=== PATIENT | female | born 1960 | race Caucasian/White ===

== ENCOUNTER 2016-09-17 20:31 | Emergency (ER) | payer MEDICARE ==
[2016-09-17 20:46] VITALS: BP 139/75
[2016-09-17] MEDS ORDERED: traMADol TAB* 50 MG PO ONE (21:42)
--- NOTE | 2016-09-17 21:43 | RAD ---
INDICATION: Right knee ankle pain 2 days after trip and fall injury COMPARISON: None. TECHNIQUE: 3 views of the right ankle were obtained. FINDINGS: Postsurgical changes include hindfoot plate and screw fixators. On the lateral view of the ankle one of the medullary screws is fractured. Degenerative changes of the ankle joint include sclerotic change of the articulating surface. There is a chronic appearing lucency overlying the fibular malleolus. IMPRESSION: POSTOPERATIVE FINDINGS AND DEGENERATIVE CHANGES DESCRIBED ABOVE. ONE OF THE MULTIPLE MEDULLARY SCREWS IS FRACTURED. THE CHRONICITY OF THIS IS UNKNOWN WITHOUT PRIOR RADIOGRAPHS AVAILABLE FOR COMPARISON. If the patient's symptoms persist, follow-up imaging is recommended.
--- NOTE | 2016-09-17 21:47 | UC ---
Lower Extremity/Ankle HPI - HPI Summary HPI Summary: 56 y./o female with multiple surgeries to ankle with hardware by Dr. Lebron reports 2 days ago fell, hit right ankle on concerte step, + swelling, + bruising, + apin, has not had relief from injury since, + RICE, concerned about fracture. no sensory changes, able to move, weight bear with pain multiple medical comorbidities, has taken ultram in the past without reaction, + reaction to Percocet, unalbe to ttake NSAIDs d/t kidney dz - History of Current Complaint Hx Obtained From: Patient Hx Last Menstrual Period: n/a ?: No Onset/Duration: Sudden Onset, Lasting Days, Still Present Severity Initially: Moderate Severity Currently: Moderate <Poornima Perera - Last Filed: 09/17/16 21:42> <Carmen Styles - Last Filed: 09/18/16 13:10> - History of Current Complaint Chief Complaint: UCLowerExtremity Stated Complaint: RIGHT ANKLE INJURY Time Seen by Provider: 09/17/16 21:19 - Allergies/Home Medications Allergies/Adverse Reactions: Allergies Allergy/AdvReac Type Severity Reaction Status Date / Time Codeine Allergy Intermediate Rash And Verified 09/17/16 20:40 Itching CI Pigment Blue 63 Allergy Hallucinati Verified 09/17/16 20:40 [From Cymbalta] ons Duloxetine [From Cymbalta] Allergy Hallucinati Verified 09/17/16 20:40 ons Latex Allergy Blisters Verified 09/17/16 20:40 Metoclopramide [From Reglan] Allergy Tremors Verified 09/17/16 20:40 Prochlorperazine Allergy Tremors Verified 09/17/16 20:40 [From Compazine] PMH/Surg Hx/FS Hx/Imm Hx Previously Healthy: Yes - R ankle injuries with surgery - Surgical History Surgical History: Yes Surgery Procedure, Year, and Place: COMPLETE HYSTERECTOMY AGE 22 DORSAL COLUMN IMPLANT hernia repair, colon resection, cardiac loop recorder placed 01/21- Removed 08/2014, Left breast biopsy 2004-[place] - Family History Known Family History: Positive: Cardiac Disease, Hypertension, Diabetes - Social History Alcohol Use: None Substance Use Type: None Smoking Status (MU): Never Smoked Tobacco - Immunization History Most Recent Influenza Vaccination: November 2014 <Poornima Perera - Last Filed: 09/17/16 21:42> Review of Systems Skin: Bruising Musculoskeletal: Arthralgia, Decreased ROM, Edema, Myalgia All Other Systems Reviewed And Are Negative: Yes <JaradhernandoPoornima - Last Filed: 09/17/16 21:42> Physical Exam Triage Information Reviewed: Yes Appearance: Well-Appearing, No Pain Distress, Well-Nourished Vital Signs: Initial Vital Signs Temp 98.7 F 09/17/16 20:37 Pulse 90 09/17/16 20:37 Resp 18 09/17/16 20:37 BP 139/75 09/17/16 20:37 Pulse Ox 99 09/17/16 20:37 Musculoskeletal: Positive: ROM Limited @ - able to have AROM in all directions with increased pain with inver/ ever of ankle, strength decreased d/t pain. tenderness to palpation over inferior, anterior med mal, no tenderness lat mal, + tenderness over prox 1, 2 metatarsal. full ROM of all toes, sensation grossly intact. + ecchymosis med mal. + mild edema midfoot, med ankle, Edema @ - R medial malleolus extending to midfoot Neurological: Positive: Alert, Muscle Tone Normal <DilmaPoornima - Last Filed: 09/17/16 21:42> Vital Signs: Initial Vital Signs Temp 98.7 F 09/17/16 20:37 Pulse 90 09/17/16 20:37 Resp 18 09/17/16 20:37 BP 139/75 09/17/16 20:37 Pulse Ox 99 09/17/16 20:37 <Carmen Styles - Last Filed: 09/18/16 13:10> Lower Extremity Course/Dx - Course Course Of Treatment: radiograph + for screw fracture, follow up with DR. Lebron tomorrow, crutches, wbat with firm shoe, non-weightbearing otherwise, ultram for pain - Differential Dx/Diagnosis Differential Diagnosis/HQI/PQRI: Cellulitis, Contusion, Fracture (Closed), Fracture (Open), Infection Provider Diagnoses: hardware fracture, contusion R ankle <Poornima Perera - Last Filed: 09/17/16 21:42> Discharge <Poornima Perera - Last Filed: 09/17/16 21:42> <Carmen Styles - Last Filed: 09/18/16 13:10> - Discharge Plan Condition: Good Disposition: HOME Prescriptions: traMADol TAB* [Ultram*] 50 mg PO Q6HR PRN #20 tab MDD 200mg PRN Reason: Pain Patient Education Materials: Foot Contusion (ED) Referrals: Anne Jose MD [Primary Care Provider] - Additional Instructions: - Follow up with DR. Lebron tomorrow - WEight bearing as tolerated with a firm shoe, non-weightbearing otherwise, crutches. - Ice, elevate, compression - Tylenol for mild pain - Ultram for moderate to severe pain Attestation Statement User Type: Provider - I was available for consult. This patient was seen by the [place]. The patient was not presented to, seen by, or examined by me. -Aroldo <Carmen Styles - Last Filed: 09/18/16 13:10>
== END 2016-09-17 22:04 | disposition home or self-care (01) ==
LOC: UCCORT 20:31
DX: T84.213A Breakdown (mechanical) of internal fixation device of bones of foot and toes, initial encounter (principal); S90.01XA Contusion of right ankle, initial encounter; W19.XXXA Unspecified fall, initial encounter; Y93.9 Activity, unspecified; Y92.9 Unspecified place or not applicable; Z88.8 Allergy status to other drugs, medicaments and biological substances; Z88.5 Allergy status to narcotic agent; Z91.040 Latex allergy status
CPT/HCPCS: 99212; A9270-GY; G0463

== ENCOUNTER 2016-10-06 20:59 | Emergency (ER) | payer MEDICARE ==
--- NOTE | 2016-10-06 21:09 | UC ---
Abdominal Pain Female HPI - HPI Summary HPI Summary: 56 YEAR OLD FEMALE PRESENTS WITH COMPLAINS OF ABDOMINAL PAIN AND DIARRHEA AFTER EATING AN EGG OMELETTE. - History of Current Complaint Stated Complaint: ABDOMINAL PAIN,DIARRHEA (? FOOD POISONING) Time Seen by Provider: 10/06/16 21:09 Hx Obtained From: Patient Hx Last Menstrual Period: n/a Onset/Duration: Sudden Onset Severity Initially: Moderate Severity Currently: Moderate Pain Scale Used: 0-10 Numeric - 7 Location: Diffuse Allergies/Adverse Reactions: Allergies Allergy/AdvReac Type Severity Reaction Status Date / Time Codeine Allergy Intermediate Rash And Verified 10/06/16 21:41 Itching CI Pigment Blue 63 Allergy Hallucinati Verified 10/06/16 21:41 [From Cymbalta] ons Duloxetine [From Cymbalta] Allergy Hallucinati Verified 10/06/16 21:41 ons Latex Allergy Blisters Verified 10/06/16 21:41 Metoclopramide [From Reglan] Allergy Tremors Verified 10/06/16 21:41 Prochlorperazine Allergy Tremors Verified 10/06/16 21:41 [From Compazine] Home Medications: Home Medications Glimepiride [Amaryl] 2 mg PO DAILY 10/06/16 [History Confirmed 10/06/16] Methotrexate TAB* 8 tab PO WEEKLY 10/06/16 [History Confirmed 10/06/16] PMH/Surg Hx/FS Hx/Imm Hx Previously Healthy: Yes - Surgical History Surgical History: Yes Surgery Procedure, Year, and Place: COMPLETE HYSTERECTOMY AGE 22 DORSAL COLUMN IMPLANT hernia repair, colon resection, cardiac loop recorder placed 01/21- Removed 08/2014, Left breast biopsy 2004-[place] - Family History Known Family History: Positive: Cardiac Disease, Hypertension, Diabetes - Social History Alcohol Use: None Substance Use Type: None Smoking Status (MU): Never Smoked Tobacco - Immunization History Most Recent Influenza Vaccination: November 2014 Review of Systems Constitutional: Negative Skin: Negative Eyes: Negative ENT: Negative Respiratory: Negative Cardiovascular: Negative Gastrointestinal: Abdominal Pain Genitourinary: Negative Motor: Negative Neurovascular: Negative Musculoskeletal: Negative Neurological: Negative Psychological: Negative All Other Systems Reviewed And Are Negative: Yes Physical Exam Triage Information Reviewed: Yes Eye Exam: Normal ENT Exam: Normal Dental Exam: Normal Neck exam: Normal Neck: Positive: 1 Respiratory Exam: Normal Cardiovascular Exam: Normal Abdomen Description: Positive: Other: - DIFFUSE ABDOMINAL PAIN Musculoskeletal Exam: Normal Neurological Exam: Normal Psychological Exam: Normal Skin Exam: Normal Abd Pain Female Course/Dx - Differential Dx/Diagnosis Provider Diagnoses: ABDOMINAL PAIN DIFFUSE. FOOD POISONING Discharge - Discharge Plan Condition: Stable Disposition: HOME Prescriptions: Dicyclomine CAP* [Bentyl CAP*] 10 mg PO ACHS PRN #28 cap PRN Reason: Spasms Loperamide HCl [Imodium A-D] 2 mg PO TID PRN #100 tab PRN Reason: Diarrhea Patient Education Materials: Food Poisoning (ED), Abdominal Pain (ED) Referrals: Anne Jose MD [Medical Doctor] - If Needed
[2016-10-06] MEDS ORDERED: Dicyclomine CAP* 10 MG PO ONE (21:17)
[2016-10-06 21:40] VITALS: BP 134/60
== END 2016-10-06 22:07 | disposition home or self-care (01) ==
LOC: UCCORT 20:59
DX: R10.84 Generalized abdominal pain (principal); T62.91XA Toxic effect of unspecified noxious substance eaten as food, accidental (unintentional), initial encounter; Y92.9 Unspecified place or not applicable; Z88.5 Allergy status to narcotic agent; Z88.8 Allergy status to other drugs, medicaments and biological substances; Z91.040 Latex allergy status; Z90.710 Acquired absence of both cervix and uterus
CPT/HCPCS: 82272; 87045; 87046; 87077; 87338; 87493; 87899; 99212; A9270-GY; G0463

== ENCOUNTER 2016-11-18 07:59 | Day surgery (SDC) | payer MEDICARE ==
[~2016-11-18 07:59] MED LIST: Buffered Lidocaine 0.9% SYRIN* 5 ML/SYR SYRINGE INTRADERM ONE; Famotidine IV* 10 MG/ML 2 ML (20 mg) IV ONE; Sodium Citrate/Citric Acid* 15 ML UDC PO ONE
[2016-11-18] MEDS ORDERED: ceFAZolin 2 GM PREMIX (*) 50 ML IVPB ONE (08:02)
[2016-11-18] MEDS ORDERED: Sodium Citrate/Citric Acid* 15 ML UDC ONE (08:02)
[2016-11-18] MEDS ORDERED: Famotidine IV* 10 MG/ML 2 ML (20 mg) ONE (08:02)
[2016-11-18] MEDS ORDERED: Buffered Lidocaine 0.9% SYRIN* 5 ML/SYR SYRINGE ONE (08:02)
[2016-11-18] MEDS ORDERED: Bupivacaine 0.5% SDV PF* 30 ML VIAL ONE (09:32)
[2016-11-18] MEDS ORDERED: fentaNYL* 50 MCG/ML 2 ML VIAL (100 MCG VIAL) ONE ×4 (09:59→11:35)
[2016-11-18] MEDS ORDERED: Lidocaine 2% PF * 5 ML VIAL ONE (10:03)
[2016-11-18] MEDS ORDERED: Propofol* 10 MG/ML 20 ML BTL IV PUSH ONE (10:03)
[2016-11-18] MEDS ORDERED: Ondansetron INJ* 2 MG/ML VIAL IV PRN (10:25)
[2016-11-18] MEDS ORDERED: DiMENhydriNATE IV* 50 MG/ML VIAL IV PUSH PRN (10:25)
[2016-11-18] MEDS ORDERED: oxyCODONE TAB* 5 MG TAB ONE ×2 (10:58→11:19)
[2016-11-18] MEDS: fentaNYL* 50 MCG/ML 2 ML VIAL (100 MCG VIAL) IV PRN ×5 (11:01→11:41)
[2016-11-18] MEDS: oxyCODONE TAB* 5 MG TAB PO PRN ×2 (11:02→11:21)
[2016-11-18 12:46] VITALS: BP 113/57
[2016-11-18] MEDS ORDERED: Ondansetron INJ* 2 MG/ML VIAL ONE (12:54)
--- NOTE | 2016-11-19 01:27 | OP ---
DATE OF SURGERY: 11/18/16 - [facility] DATE OF : 58 SURGEON: Yair Lebron MD BOX PACKER: Kristina Delacruz PA-C ANESTHESIOLOGIST: Isaiah Bertrand MD ANESTHESIA: General PRE-OP DIAGNOSIS: Painful retained hardware, previous triple arthrodesis. POST-OP DIAGNOSIS: Painful retained hardware, previous triple arthrodesis. OPERATIVE PROCEDURE: Removal of hardware, right medial and lateral hind foot. DESCRIPTION OF PROCEDURE: The patient was taken to the operating room where we opened up longitudinally over the dorsal medial hind foot. The anterior tibialis tendon was reflected medially and laterally to allow full visualization of the plate. The 8.0 diameter screw and the 2 medial navicular screws, one of which was broken and known to be broken previously. All this hardware was removed without difficulty except the broken position of the shaft of the screw which was left behind. Laterally, we made a 4 cm incision of the cuboid where the lateral cuboid plate was identified, this was removed also with a small fragment screw snaker tractor driver. We then irrigated the medial and lateral wounds closing with 2-0 Vicryl and bridget for the skin and a compression dressing applied. [id number]/[facility] #: [id number] MTDD
== END 2016-11-18 13:09 | disposition home or self-care (01) ==
LOC: OR 07:59
PROVIDERS: ATTEND Orthopaedic Surgery
DX: T84.84XA Pain due to internal orthopedic prosthetic devices, implants and grafts, initial encounter (principal); T84.116A Breakdown (mechanical) of internal fixation device of bone of right lower leg, initial encounter; Y79.2 Prosthetic and other implants, materials and accessory orthopedic devices associated with adverse incidents; J45.909 Unspecified asthma, uncomplicated; K21.9 Gastro-esophageal reflux disease without esophagitis; E78.00 Pure hypercholesterolemia, unspecified; E11.9 Type 2 diabetes mellitus without complications; I10 Essential (primary) hypertension; M05.79 Rheumatoid arthritis with rheumatoid factor of multiple sites without organ or systems involvement; Z86.73 Personal history of transient ischemic attack (TIA), and cerebral infarction without residual deficits; Z88.8 Allergy status to other drugs, medicaments and biological substances; Z88.5 Allergy status to narcotic agent
CPT/HCPCS: 88300; A9270-GY; J0690; J2405; J2704; J3010

== ENCOUNTER 2016-12-01 18:12 | Emergency (ER) | payer MEDICARE ==
--- NOTE | 2016-12-01 20:01 | UC ---
Skin Complaint HPI - HPI Summary HPI Summary: 56 YEAR OLD WHO HAS FOOT PAIN AND REDNESS. pt states she had surgery on to have hardware removed from her R foot that has been in her R foot for 20+ yrs. She comes to clinic today d/t concern of an infection in both incisions. She states the pain has gotten worse since Friday night and she notices more swelling in her foot. Upon inspection, wounds area well approximated, healing and without any signs of infection, no drainage noted or red streaks in foot or ankle. Dr. Lebron removed bridget from the dorsal incision Wed 11/27 and plans to remove the bridget from the lateral incision this Wed 12/04. Denies fever, and has not called the surgeon. No fever, SOB, drainage. [ End ] - History of Current Complaint Chief Complaint: UCLowerExtremity Time Seen by Provider: 12/01/16 19:53 Stated Complaint: LEFT ANKLE POSSIBLE SUTURE INFECTION (SX 11/18) Hx Obtained From: Patient Hx Last Menstrual Period: n/a Onset/Duration: Gradual Onset Timing: Constant Pain Intensity: 5 - Allergy/Home Medications Allergies/Adverse Reactions: Allergies Allergy/AdvReac Type Severity Reaction Status Date / Time CI Pigment Blue 63 Allergy Hallucinati Verified 11/18/16 08:16 [From Cymbalta] ons Duloxetine [From Cymbalta] Allergy Hallucinati Verified 11/18/16 08:16 ons Latex Allergy Blisters Verified 11/18/16 08:16 Codeine AdvReac Intermediate severe gi Verified 12/01/16 19:21 upset Metoclopramide [From Reglan] AdvReac Tremors Verified 12/01/16 19:21 Prochlorperazine AdvReac Tremors Verified 12/01/16 19:21 [From Compazine] Home Medications: Home Medications Oxycodone HCl [Oxaydo] 5 mg PO Q4HR 12/01/16 [History Confirmed 12/01/16] Review of Systems Musculoskeletal: Arthralgia - left ankle, Decreased ROM, Edema All Other Systems Reviewed And Are Negative: Yes PMH/Surg Hx/FS Hx/Imm Hx Previously Healthy: Yes Endocrine History: Diabetes, Dyslipidemia Cardiovascular History: Hypertension GI/ History: Gastroesophageal Reflux - Surgical History Surgical History: Yes Surgery Procedure, Year, and Place: COMPLETE HYSTERECTOMY AGE 22 DORSAL COLUMN IMPLANT hernia repair, colon resection, cardiac loop recorder placed 01/21- Removed 08/2014, Left breast biopsy 2004-[place]. MULTIPLE RIGHT ANKLE SURGERIES - Family History Known Family History: Positive: Cardiac Disease, Hypertension, Diabetes - Social History Lives: With Family Alcohol Use: None Substance Use Type: None Smoking Status (MU): Never Smoked Tobacco - Immunization History Most Recent Influenza Vaccination: November 2014 Physical Exam Triage Information Reviewed: Yes Appearance: Well-Appearing, Well-Nourished Vital Signs: Initial Vital Signs Temp 97.7 F 12/01/16 19:04 Pulse 97 12/01/16 19:04 Resp 16 12/01/16 19:04 BP 149/78 12/01/16 19:04 Pulse Ox 100 12/01/16 19:04 Vital Signs Reviewed: Yes Eye Exam: Normal ENT Exam: Normal Dental Exam: Normal Neck exam: Normal Neck: Positive: 1 Respiratory Exam: Normal Cardiovascular Exam: Normal Musculoskeletal Exam: Normal Neurological Exam: Normal Psychological Exam: Normal Skin: Positive: Other - left foot with lateral foot with well approximated incision with bridget. left anterior foot with clean incision with steri strips and some redness around the incision and distal to the incision with 1+ pitting edema with redness. no discharge. no streaking. pain with palpation of the whole foot except the toes, can move all toes, cap refill < 3 sec. neg homans. Course/Dx - Course Course Of Treatment: We had long discussion about treatment -- she and are well aware we can not rule out DVT / compartment syndome and both conditions can be life threatening and we can work up that here -- she is aware but refuses ED and states if her pain worsens she will go to ED. Pain at 5/10 and previous oxy was 4-5 hours ago. With the redness worsening she states I will advise cephalexin to cover for bacterial infection not in the incision site but the surrounding skin. she will go to ortho tomorrow for f/u. she knows of complications with DVT -- PE/respiratory collapse / and that compartment syndrome does not want to be delayed. It is likely edema in the leg from being inactive and its dependent so the edema could be contributing to the discomfort in the foot, no pain in the foot if a rest and not palpating the foot or leg. neg homans. - Diagnoses Provider Diagnoses: 1)left foot pain. 2) elevated BP - follow up with PCP -- has Hypertension previously Discharge - Discharge Plan Condition: Fair Disposition: HOME Prescriptions: Cephalexin CAP* [Keflex 500 CAP*] 500 mg PO TID #21 cap Patient Education Materials: Cellulitis (ED) Referrals: JIMENA Sellers [Primary Care Provider] - Additional Instructions: WE DISCUSSED YOU HAVE REDNESS AND SWELLING IN THE FOOT. YOU MAY HAVE A CLOT IN THE LEG OR COMPARTMENT SYNDROME AT THIS TIME ALTHOUGH LOW CHANCES IT IS POSSIBLE (AND YOU HAVE DECLINED GOING TO THE EMERGENCY ROOM). BECAUSE OF YOUR RECENT SURGERY AND THE REDNESS WE WILL TREAT FOR POTENTIAL BACTERIAL INFECTION ( CELLULITIS) AND PLEASE TAKE THE ANTIBIOTICS UNTIL YOU GET TO YOUR SURGEON TOMORROW
[2016-12-01] MEDS ORDERED: Cephalexin CAP* 500 MG PO ONE (20:39)
[2016-12-01] MEDS ORDERED: HYDROcodone/ACETAMIN 5-325 MG* 1 TAB PO ONE (20:41)
[2016-12-01 20:50] VITALS: BP 142/78
== END 2016-12-01 21:10 | disposition home or self-care (01) ==
LOC: UCCORT 18:12
DX: M25.571 Pain in right ankle and joints of right foot (principal); R03.0 Elevated blood-pressure reading, without diagnosis of hypertension; E11.9 Type 2 diabetes mellitus without complications; E78.5 Hyperlipidemia, unspecified; I10 Essential (primary) hypertension; Z91.048 Other nonmedicinal substance allergy status; Z88.5 Allergy status to narcotic agent; Z91.040 Latex allergy status
CPT/HCPCS: 99213; A9270-GY; G0463

== ENCOUNTER 2020-03-15 05:39 | Observation (INO) ==
[2020-03-15] MEDS ORDERED: Lactated Ringers 1000 ml BAG 1,000 ML IV SCH (06:00)
[2020-03-15] MEDS ORDERED: Buffered Lidocaine 1% SYRIN 1 ml INTRADERM ONE (06:00)
[2020-03-15] MEDS ORDERED: Morphine ER 30 mg TAB ** extended release ONE (06:19)
[2020-03-15] MEDS ORDERED: ceFAZolin 2 GM PREMIX 2 GM/50 ML BAG ONE (06:19)
[2020-03-15] MEDS ORDERED: Heparin 5000 UNITS/ML 1 mL VIAL ONE (06:38)
[2020-03-15] MEDS ORDERED: Lidocaine 1% VIAL 10 MG/ML VIAL ONE (06:38)
[2020-03-15] MEDS ORDERED: Chlorhexidine MOUTHWASH 0.12% 15 ML UDC ONE (06:38)
[2020-03-15] MEDS ORDERED: fentaNYL 100 mcg/2 ml 50 MCG/ML VIAL ONE ×3 (07:01→18:47)
[2020-03-15] MEDS ORDERED: Rocuronium 50 mg VIAL 10 mg/ml 5 ml VIAL (50 mg) ONE ×2 (07:01→09:20)
[2020-03-15] MEDS ORDERED: Midazolam 2 mg/2 ml VIAL 1 mg/ml 2 ml VIAL (2 mg) ONE (07:02)
[2020-03-15] MEDS ORDERED: Lidocaine 1% w EPI 1:100,000 MDV 20 ML VIAL ONE (07:11)
[2020-03-15] MEDS ORDERED: Propofol 10 MG/ML 20 ML BTL ONE ×4 (07:13→10:29)
[2020-03-15] MEDS ORDERED: Lidocaine 2% PF 5 ML VIAL ONE (07:13)
[2020-03-15] MEDS ORDERED: Phenylephrine IV 10 MG/ML 1 ml VIAL ONE (08:11)
[2020-03-15] MEDS ORDERED: Ondansetron 4 mg VIAL 2 MG/ML 2 ml VIAL IV PRN (09:00)
[2020-03-15] MEDS ORDERED: Naloxone 0.4 mg VIAL 0.4 mg/ml 1 ml VIAL IV PRN (09:00)
[2020-03-15] MEDS ORDERED: Phenylephrine 40 mcg/mL 10mL (400mcg) SYRINGE ONE (09:06)
[2020-03-15] MEDS ORDERED: HYDROmorphone 1 MG/1 ML SYRINGE ONE ×2 (09:12→09:59)
[2020-03-15] MEDS ORDERED: Ondansetron 4 mg VIAL 2 MG/ML 2 ml VIAL ONE ×2 (10:36→13:13)
[2020-03-15] MEDS ORDERED: EPHEDrine (Pressors) 50 MG/ML VIAL ONE (11:06)
[2020-03-15] MEDS ORDERED: ceFAZolin VIAL VIAL ONE (13:00)
[2020-03-15] MEDS: fentaNYL 100 mcg/2 ml 50 MCG/ML VIAL IV PRN ×3 (15:18→18:47)
[2020-03-15] MEDS ORDERED: FOLIC ACID 0.8 MG PO SCH (19:15)
[2020-03-15] MEDS ORDERED: Albuterol HFA INHALER 8 gm MDI INH PRN (21:13)
[2020-03-15] MEDS: oxyCODONE/Acetamin 5/325 mg TAB PO PRN (21:43)
[2020-03-16] MEDS: oxyCODONE/Acetamin 5/325 mg TAB PO PRN ×3 (02:50→13:59)
[2020-03-16] MEDS ORDERED: Vitamin THERAPEUTIC TAB PO SCH (09:00)
[2020-03-16 17:12] VITALS: BP 102/53
[2020-03-16] MEDS ORDERED: ADALIMUMAB 40 MG SUBCUT SCH (18:45)
[2020-03-16] MEDS ORDERED: INSULIN GLARGINE 10 UNIT SUBCUT SCH (21:00)
[2020-03-17] MEDS ORDERED: MULTIVITAMIN PO SCH (09:00)
[2020-03-18] MEDS ORDERED: METHOTREXATE SODIUM PO SCH (18:31)
== END 2020-03-16 18:50 | disposition home or self-care (01) ==
LOC: OR 05:39 → SSU 18:56 → INTOOBSV 18:56
PROVIDERS: ADMIT Obstetrics & Gynecology; ATTEND Obstetrics & Gynecology